=== PATIENT | male | born 1990 | race Caucasian/White ===

== ENCOUNTER 2024-04-02 11:29 | Emergency (ER) | payer OTHER ==
[~2024-04-02] VITALS: Ht 165.1 cm; Wt 75.0 kg
[2024-04-02 11:34] VITALS: O2SAT 99
[2024-04-02] MEDS ORDERED: CEPH500T MT (12:56)
[2024-04-02] MEDS ORDERED: SULF1TAB48 MT (12:56)
[2024-04-02 13:20] VITALS: BP 110/60; PULSE 60; RESP 16; TEMP 98
== END 2024-04-02 13:21 | disposition home or self-care (01) ==
LOC: ER 11:29
DX: S30.861A Insect bite (nonvenomous) of abdominal wall, initial encounter (principal); W57.XXXA Bitten or stung by nonvenomous insect and other nonvenomous arthropods, initial encounter; Y93.89 Activity, other specified; Y92.89 Other specified places as the place of occurrence of the external cause; Y99.8 Other external cause status
CPT/HCPCS: 99283